=== PATIENT | male | born 1985 ===

== ENCOUNTER 2020-12-03 14:44 | Inpatient (IN) | payer SELFPAY ==
[~2020-12-03] VITALS: Ht 172.7 cm; Wt 115.0 kg
--- NOTE | 2020-12-03 14:56 | NUR ---
PT BIBA. PER PT WAS DRIVING WHEN HE STARTED TO FEEL NUMB AND WEAK IN HIS HANDS, FEET, AND FACE. PT REPORTS HX OF ANXIETY AND GASTRIC ULCERS. PER PT NO CP OR SOB. PER EMS BLOOD SUGAR WAS 107. PT NORMALLY DRINKS 6 DRINKS PER NIGHT, BUT HAS NOT DRANK ANYTHING IN THE LAST 24 HOURS. PT RESTING IN GURNEY WITH EYES CLOSED, EASY TO AROUSE, A&OX4, MONITORING IN PLACE, EKG DONE, NADN AT THIS TIME, PT REPORTS STILL FEELING WEAK, MAG HORAN AT BEDSIDE, WCTM.
--- NOTE | 2020-12-03 14:58 | NUR ---
PER EMS PT GOT 500CC NS AND HAS A 18G PIV IN RIGHT FOREARM.
[2020-12-03] MEDS ORDERED: PLEASE ENTER ALLERGIES MC SCH (15:00)
[2020-12-03] MEDS ORDERED: SODIUM CHLORIDE FLUSH 10ML SYR IVF ONE (15:00)
[2020-12-03] MEDS ORDERED: SODIUM CHLORIDE 0.9% 1,000ML IVBOLUS ONE (15:00)
[2020-12-03] MEDS ORDERED: LORazepam 2 MG/ML, 1ML IVPush ONE (15:00)
[2020-12-03] MEDS ORDERED: LORazepam 2 MG/ML, 1ML ONE (15:03)
--- NOTE | 2020-12-03 15:10 | NUR ---
PT REFUSING TO PROVIDE URINE SAMPLE AT THIS TIME.
[2020-12-03 15:14] LABS: BASOPHILS % (AUTO) 1 % (0-1); EOSINOPHILS % (AUTO) 1 % (1-7); LYMPHOCYTES % (AUTO) 27 % (22-44); MD NO; MEAN CORPUSCULAR HEMOGLOBIN 30.3 pg (27.5-34.5); MEAN CORPUSCULAR HGB CONC 34.2 g/dL (33.2-36.2); MEAN PLATELET VOLUME 7.5 fL (7.4-10.4); MONOCYTES % (AUTO) 9 % (2-9); NEUTROPHILS % (AUTO) 62 % (42-75); PLATELET COUNT 272 x10^3/uL (130-400); RED CELL DISTRIBUTION WIDTH 12.8 % (9.4-14.8)
[2020-12-03 15:27] LABS: ALANINE AMINOTRANSFERASE 81 U/L (12-78); ALBUMIN 3.8 g/dL (3.4-5.0); ANION GAP 9 mmol/L (5-15); CALCIUM 8.5 mg/dL (8.5-10.1); CHLORIDE 110 mmol/L (98-107)
[2020-12-03 15:29] LABS: ALKALINE PHOSPHATASE 60 U/L (45-117); BILIRUBIN,TOTAL 0.4 mg/dL (0.2-1.0); TOTAL PROTEIN 7.7 g/dL (6.4-8.2)
[2020-12-03] MEDS ORDERED: CEFTRIAXONE PMX 1GM/50ML 50 ML ONE (16:21)
--- NOTE | 2020-12-03 16:28 | NUR ---
PT CONTINUES TO REFUSE TO GIVE URINE SAMPLE.
--- NOTE | 2020-12-03 16:28 | NUR ---
ANTIBIOTICS STARTED AFTER BOTH SETS OF BLOOD CULTURES COLLECTED BY LAB.
[2020-12-03] MEDS ORDERED: CEFTRIAXONE PMX 1GM/50ML 50 ML IV ONE ×2 (16:30→19:30)
--- NOTE | 2020-12-03 17:47 | NUR ---
PT RESTING IN [place] AT THIS TIME, REPORT GIVEN TO KATRINA, MONITORING STILL IN PLACE. WCTM.
[2020-12-03 17:59] LABS: INTERNATIONAL NORMALIZED RATIO 1.04 (0.93-1.1); PROTHROMBIN TIME 11.1 Seconds (9.6-11.5)
[2020-12-03] MEDS ORDERED: ENOXAPARIN 40 MG/0.4 ML SQ SCH (18:00)
[2020-12-03] MEDS ORDERED: ONDANSETRON 2MG/ML, 2ML IVPush PRN (18:00)
[2020-12-03] MEDS ORDERED: ACETAMINOPHEN 325 MG TABLET PO PRN (18:00)
[2020-12-03] MEDS ORDERED: SODIUM CHLORIDE 0.9% 1,000 ML IV SCH (18:00)
[2020-12-03 18:01] LABS: D-DIMER < 0.19 ug/mlFEU (0.00-0.52)
[2020-12-03 18:14] LABS: TROPONIN I < 0.015 ng/mL (0.000-0.045)
[2020-12-03 20:00] VITALS: BP 152/77
[2020-12-03] MEDS ORDERED: POTASSIUM CHLORIDE 20 MEQ, MAGNESIUM SULFATE 1 GM, FOLIC ACID 1 MG, THIAMINE 200 MG in ... IV SCH (20:30)
[2020-12-03] MEDS: DOXYCYCLINE 100 MG in DEXTROSE 5% 250 ML IV SCH (21:21)
[2020-12-04 00:52] LABS: TROPONIN I < 0.015 ng/mL (0.000-0.045)
[2020-12-04 01:34] VITALS: BP 127/76
[2020-12-04 06:13] LABS: BASOPHILS % (AUTO) 1 % (0-1); EOSINOPHILS % (AUTO) 2 % (1-7); LYMPHOCYTES % (AUTO) 30 % (22-44); MD NO; MEAN CORPUSCULAR HEMOGLOBIN 30.9 pg (27.5-34.5); MEAN CORPUSCULAR HGB CONC 34.6 g/dL (33.2-36.2); MEAN PLATELET VOLUME 7.6 fL (7.4-10.4); MONOCYTES % (AUTO) 8 % (2-9); NEUTROPHILS % (AUTO) 60 % (42-75); PLATELET COUNT 244 x10^3/uL (130-400); RED BLOOD COUNT 4.66 x10^6/uL (4.38-5.82); RED CELL DISTRIBUTION WIDTH 12.9 % (9.4-14.8)
[2020-12-04 06:25] LABS: ALANINE AMINOTRANSFERASE 71 U/L (12-78); ALBUMIN 3.4 g/dL (3.4-5.0); ANION GAP 7 mmol/L (5-15); CALCIUM 8.4 mg/dL (8.5-10.1); CHLORIDE 112 mmol/L (98-107); CREATININE 0.93 mg/dL (0.7-1.3)
[2020-12-04 06:30] LABS: ALKALINE PHOSPHATASE 51 U/L (45-117); BILIRUBIN,TOTAL 0.4 mg/dL (0.2-1.0); TROPONIN I < 0.015 ng/mL (0.000-0.045)
[2020-12-04 07:54] VITALS: BP 146/73
[2020-12-04 09:15] LABS: MICROSCOPIC NOT IND
[2020-12-04 09:27] LABS: AMPHETAMINE SCREEN, URINE Negative (Negative); BARBITURATE SCREEN, URINE Negative (Negative); BENZODIAZEPINE SCREEN, URINE Negative (Negative); CANNABINOID SCREEN, URINE Positive (Negative); COCAINE SCREEN, URINE Negative (Negative); METHADONE SCREEN, URINE Negative (Negative); OPIATE SCREEN, URINE Negative (Negative)
[2020-12-04] MEDS: DOXYCYCLINE 100 MG in DEXTROSE 5% 250 ML IV SCH (09:30)
[2020-12-04 12:35] VITALS: BP 132/81
[2020-12-04] MEDS ORDERED: CEFTRIAXONE PMX 2GM/50ML 50 ML IVPB SCH (16:30)
== END 2020-12-04 16:27 | disposition home or self-care (01) | DRG 871 ==
LOC: EDBD 14:44 → ED 19:43 → EDIP 19:45 → 4EST 19:59
PROVIDERS: ADMIT Internal Medicine; ATTEND Family Medicine
DX: A41.89 Other specified sepsis (principal); J18.0 Bronchopneumonia, unspecified organism; F10.20 Alcohol dependence, uncomplicated; Z20.822 Contact with and (suspected) exposure to COVID-19
CPT/HCPCS: 36415; 70450; 71045; 80053; 80307; 80320; 81003; 83605; 83735; 84100; 84145; 84443; 84484; 85025; 85379; 85610; 87040; 93005; 93306; 93880; 96374; 96375; 99291; G0378; J0696; J1650; J3411; J3475; J3480; J7060; J7070; G0480; J2060; J7030; U0003